=== PATIENT | female | born 1955 | race Caucasian/White ===

== ENCOUNTER 2017-05-01 21:02 | Emergency (ER) | payer MEDICAID ==
[~2017-05-01] VITALS: Ht 152.4 cm; Wt 77.1 kg
[~2017-05-01 21:02] MED LIST: AMARYL4 M1 PO; ATORVASTATIN CA20 M1 PO; HYDROCODON-ACE1 EA16 PO; LISINOPRIL40 M1 PO; LYRICA75 MG/CAP PO; NORVASC5 M2 PO
[2017-05-01] MEDS ORDERED: CLONIDINE HCL PO (21:18)
[2017-05-01] MEDS ORDERED: JANUVIA50 M1 PO (21:19)
[2017-05-01] MEDS ORDERED: NEURONTIN300 M1 PO (21:20)
[2017-05-01] MEDS ORDERED: VITAMIN D35000 UNI3 PO (21:21)
[2017-05-01] MEDS ORDERED: ASPIR 8181 M1 PO (21:21)
[2017-05-01 22:15] LABS: BASO % 0.3 % (0-2); EOS % 4.1 % (0-7); EOSINOPHIL ABSOLUTE COUNT 0.3 tho/cmm (0.0-0.7); HCT-HEMATOCRIT 38.4 % (34.0-49.0); HGB-HEMOGLOBIN 13.3 gm/dl (12.0-15.5); IMMATURE GRANULOCYTES ABSOLUTE 0.01 tho/cmm (0-0.03); IMMATURE GRANULOCYTES PERCENT 0.2 % (0-0.3); LYMPH % 39.5 % (20-45); LYMPH ABSOLUTE COUNT 2.4 tho/cmm (0.8-4.5); MCH (MEAN CORPUSCULAR HGB) 30.9 pg (28.0-32.0); MCHC MEAN CORPUSCULAR HGB CONC 34.6 % (32.0-36.0); MCV (MEAN CELL VOLUME) 89.1 fl (82.0-96.0); MEAN PLATELET VOLUME 10.1 cmc (9.4-12.4); MONO % 6.3 % (0-12); MONOCYTE ABSOLUTE COUNT 0.4 tho/cmm (0.0-1.2); NEUTROPHILS % 49.6 % (40-80); PLATELET COUNT 241 tho/cmm (150-450); RED BLOOD COUNT 4.31 mil/cmm (4.00-5.20); RED CELL DISTRIBUTION WIDTH 12.2 % (12.4-16.4); WHITE BLOOD COUNT 6.1 tho/cmm (4.0-10.0)
[2017-05-01 22:45] LABS: ANION GAP 11 mmol/L (0-20); BLOOD UREA NITROGEN 38 mg/dl (6-24); CALCIUM 8.5 mg/dl (8.5-10.5); CARBON DIOXIDE-VENOUS 28 mmol/L (22-32); CHLORIDE 103 mmol/l (96-110); CREATININE 1.67 mg/dl (0.50-1.10); GLUCOSE 203 mg/dL (70-110); POTASSIUM 4.5 mmol/L (3.7-5.1); SODIUM 137 mmol/L (135-145); eGFR VALUE FOR BLACK 38 mL/Min
== END 2017-05-01 23:07 ==
LOC: EDMED 21:02
PROVIDERS: Emergency Medicine
DX: F41.9 Anxiety disorder, unspecified (principal); I10 Essential (primary) hypertension; E11.9 Type 2 diabetes mellitus without complications; Z79.899 Other long term (current) drug therapy